=== PATIENT | male | born 1965 | race Caucasian/White ===

== ENCOUNTER 2018-03-26 05:15 | Emergency (ER) | payer BC ==
[2018-03-26 05:53] LABS: Absolute Lymphocytes (CBC) 1.5 K/uL (0.7-4.9); Absolute Monocytes 0.8 K/uL (0.1-1.3); Absolute Neutrophil 9.1 K/uL (1.8-8.0); Basophils % 0.6 % (0-1.3); Eosinophils % 0.6 % (0-4.4); Hematocrit 44.2 % (39.6-49.0); Lymphocytes % 13.3 % (15.3-44.8); MCH 33.2 pg (27.0-35.0); MCV 99.8 fL (80-100); MPV 8.4 fL (7.6-11.3); Monocytes % 6.7 % (3.3-12.3); RBC Red Blood Cell Count 4.43 M/uL (4.33-5.43)
[2018-03-26 06:00] LABS: Potassium 3.9 mEq/L (3.6-5.0)
[2018-03-26 06:04] LABS: Urine Blood NEGATIVE (NEG); Urine Glucose NEGATIVE (NEG); Urine Protein 1+ (NEG); Urine Specific Gravity 1.025 (1.005-1.030); Urine pH 6.5 (5.0-7.0)
[2018-03-26 06:04] LABS: Urine Amorphous Sediment 1+ /HPF (NONE SEEN); Urine Bacteria <20 /HPF (NONE SEEN); Urine Culture Reflex Order NOT NEEDED; Urine RBC <5 /HPF (NONE SEEN)
[2018-03-26 06:06] LABS: Albumin 4.2 g/dL (3.2-5.5); Bilirubin Direct 0.4 mg/dL (0-0.2); Protein, Total 7.5 g/dL (6.0-8.3)
--- NOTE | 2018-03-26 07:03 | RAD REPORT ---
EXAM DESCRIPTION: CT - Stone Protocol - 03/26/2018 6:41 am CLINICAL HISTORY: Abdominal pain, flank pain Images were submitted for preliminary [facility] report. Final dictation occurred prior to receiving p reliminary report. COMPARISON: None. TECHNIQUE: Axial 5 mm thick images were obtained without oral or IV contrast. The [id number] span s the entirety of the system partially obscuring uppermost abdomen and lung bases. All CT scans are performed using dose optimization technique as appropriate and may include automated exposure control or mA/KV adjustment according to patient size. FINDINGS: No hydronephrosis is present and no obstructing ureteral calculi. No suspicious renal mass es. Isodense masses and pyelonephritis are not excluded on a stone protocol CT scan. Urinary bladder is contracted accentuating wall thickness. No bladder calculi. Cystitis is not excluded based on imag ing. Prostate gland and seminal vesicles are normal range. Imaged portions of the liver, spleen and pancreas show no suspicious findings on non-contrast imaging . Cholecystectomy clips are present. No biliary tree dilatation. No significant adrenal finding. No suspicious bowel findings. Appendix is identified and normal. No mass or bulky lymphadenopathy. A 14 millimeter fat only umbilical hernia is present. Patient has a small fat filled left inguinal hernia. No free air, free fluid or inflammatory stranding. Disc and bony degenerative changes are present. No acute or pathologic bone process. IMPRESSION: No hydronephrosis, obstructing calculus or acute finding. Urinary bladder wall thickening is likely artifact of contraction rather than cystitis. Correlation c an be made with lab findings. No prostate or seminal vesicle acute finding. Isodense masses and pyelonephritis are not excluded on stone protocol technique. No pyelonephritis or acute GI process. Gallbladder is out with no acute pancreatic or gallbladder pro cess seen.
[2018-03-26] MEDS ORDERED: KETOROLAC 30 MG/ML INJ ONE (07:19)
[2018-03-26] MEDS ORDERED: NA CHLORIDE 0.9% 500 ML ONE (07:19)
--- NOTE | 2018-03-26 07:38 | ER ---
Nurse's Notes [facility] Name: Ruben Leroy Age: 52 yrs Sex: Male : 1965 Arrival Date: 03/26/2018 Time: 05:16 Bed 8 Private MD: Diagnosis: Unspecified abdominal pain Presentation: 03/26 05:21 Presenting complaint: EMS states: they were toned out for report of pt having right bb flank pain and abdominal pain pt states he has hx of kidney stones and has exacerbations every couple of years. Transition of care: patient was not received from another setting of care. Onset of symptoms was March 26, 2018. Risk Assessment: Do you want to hurt yourself or someone else? Patient reports no desire to harm self or others. Initial Sepsis Screen: Does the patient meet any 2 criteria? No. Patient's initial sepsis screen is negative. Does the patient have a suspected source of infection? No. Patient's initial sepsis screen is negative. Care prior to arrival: Medication(s) given: toradol 30mg IV initiated. 20 GA, in the left antecubital area. 05:21 Method Of Arrival: EMS: [facility] bb 05:21 Acuity: SHANI 3 bb Historical: - Allergies: 05:23 No Known Allergies; bb - Home Meds: 05:23 None [Active]; bb - PMHx: 05:23 Kidney stones; bb - PSHx: 05:23 Cholecystectomy; bb - Immunization history:: Adult Immunizations up to date. - Social history:: Smoking status: Patient uses tobacco products, cigars, Patient uses alcohol, occasionally. Patient/guardian denies using street drugs. Screenin:24 Abuse screen: Denies threats or abuse. Denies injuries from another. Nutritional mg2 screening: No deficits noted. Tuberculosis screening: No symptoms or risk factors identified. Fall Risk IV access (20 points). Assessment: 05:25 General: Appears uncomfortable, Behavior is cooperative. Pain: Complains of pain in mg2 flank Pain does not radiate. Pain currently is 10 out of 10 on a pain scale. Quality of pain is described as aching, Pain began suddenly, Is intermittent, Alleviated by medications, Noted to be grimacing, moaning. Neuro: Level of Consciousness is awake, alert, Oriented to person, place, time. Cardiovascular: Capillary refill < 3 seconds Patient's skin is warm and dry. Respiratory: Airway is patent Respiratory effort is even, unlabored, Respiratory pattern is regular, symmetrical. GI: Reports lower abdominal pain. : Reports flank pain. EENT: No signs and/or symptoms were reported regarding the EENT system. Derm: Skin is intact, Skin is pink, warm \T\ dry. normal. Musculoskeletal: No signs and/or symptoms reported regarding the musculoskeletal system. 06:08 Reassessment: Patient appears in no apparent distress at this time. Patient and/or aa1 family updated on plan of care and expected duration. Pain level reassessed. Patient is alert, oriented x 3, equal unlabored respirations, skin warm/dry/pink. Pt awaiting CT scan. Vital Signs: 05:23 BP 128 / 96; Pulse 57; Resp 20 S; Temp 99.7(O); Pulse Ox 99% on R/A; Weight 80.74 kg bb (R); Height 5 ft. 8 in. (172.72 cm) (R); Pain 10/10; 06:09 BP 114 / 75; Pulse 64; Resp 18; Pulse Ox 96% on R/A; aa1 07:49 BP 118 / 80; Pulse 72; Resp 17 S; Pulse Ox 100% ; Pain 4/10; sg 05:23 Body Mass Index 27.06 (80.74 kg, 172.72 cm) bb ED Course: 05:16 Patient arrived in ED. ds1 05:23 Triage completed. bb 05:23 Julio Cotton, RN is Primary Nurse. mg2 05:23 Arm band placed on Patient placed in an exam room, on a stretcher, on pulse oximetry. bb 05:24 Maintain EMS IV. Dressing intact. Good blood return noted. Site clean \T\ dry. Gauge \T\ mg 2 site: 20 \T\ L AC. 06:13 Alberto Moore PA is PHCP. cp 06:13 David Knott MD is Attending Physician. cp 06:[address] via wheelchair. kw1 06:38 CT completed. Patient tolerated procedure well. Patient moved back from CT. kw1 06:41 CT Stone Protocol In Process Unspecified. EDMS 07:48 Awaiting: IV fluid to infuse as ordered prior to dc to home, pt stated understanding. sg Administered Medications: 07:22 Drug: TORadol 30 mg Route: IVP; Site: left antecubital; sg 07:22 Drug: NS 0.9% 500 ml Route: IV; Rate: bolus; Site: left antecubital; sg Outcome: 07:38 Discharge ordered by . yasmeen 08:07 Patient left the ED. sg Signatures: Dispatcher [employer] EDMS Sly Higgins RN RN sg Maira Mercado RN RN aa1 Yaneth Persaud ds1 Felicita Childers RN RN Alberto Oliveros PA PA Jaimie Neville 1 Julio Cotton RN RN mg2 Corrections: (The following items were deleted from the chart) 05:28 05:25 GI: No signs and/or symptoms were reported involving the gastrointestinal system. mg2 mg2 05:28 05:25 GI: No signs and/or symptoms were reported involving the gastrointestinal system. mg2 Reports lower abdominal pain, mg2
--- NOTE | 2018-03-26 07:38 | EDPHYS ---
Physician Documentation [facility] Name: Ruben Leroy Age: 52 yrs Sex: Male : 1965 Arrival Date: 03/26/2018 Time: 05:16 Bed 8 Private MD: ED Physician David Knott HPI: 03/26 06:19 This 52 yrs old Male presents to ER via EMS with complaints of Flank Pain. cp 06:19 The patient complains of pain in the right flank. The pain radiates to the abdomen. cp 06:19 Onset: The symptoms/episode began/occurred last night. cp 06:19 Associated signs and symptoms: Pertinent positives: nausea, vomiting, Pertinent cp negatives: diarrhea, dysuria, fever, pain radiating to the lower extremities. Severity of pain: in the emergency department the pain has improved mildly. The patient has experienced similar episodes in the past, today's symptoms are similar, to when the patient was apparently diagnosed with kidney stones. Historical: - Allergies: 05:23 No Known Allergies; bb - Home Meds: 05:23 None [Active]; bb - PMHx: 05:23 Kidney stones; bb - PSHx: 05:23 Cholecystectomy; bb - Immunization history:: Adult Immunizations up to date. - Social history:: Smoking status: Patient uses tobacco products, cigars, Patient uses alcohol, occasionally. Patient/guardian denies using street drugs. ROS: 06:25 Constitutional: Negative for body aches, chills, fever, poor PO intake. cp 06:25 Eyes: Negative for injury, pain, redness, and discharge. cp 06:25 ENT: Negative for drainage from ear(s), ear pain, sore throat, difficulty swallowing, difficulty handling secretions. 06:25 Cardiovascular: Negative for chest pain, edema, palpitations. 06:25 Respiratory: Negative for cough, shortness of breath, wheezing. 06:25 Abdomen/GI: Positive for abdominal pain, nausea and vomiting, Negative for diarrhea, constipation, black/tarry stool, rectal bleeding, active vomiting. 06:25 Back: Positive for flank pain, on the right. 06:25 : Negative for urinary symptoms. 06:25 Skin: Negative for cellulitis, rash. 06:25 Neuro: Negative for dizziness, headache, weakness. 06:25 All other systems are negative. Exam: 06:32 Constitutional: The patient appears in no acute distress, alert, awake, cp non-diaphoretic, non-toxic, well developed, well nourished. 06:32 Head/Face: Normocephalic, atraumatic. cp 06:32 Eyes: Periorbital structures: appear normal, Pupils: equal, round, and reactive to light and accomodation, Conjunctiva: normal, no exudate, no injection, Sclera: no appreciated abnormality, Lids and lashes: appear normal, bilaterally. 06:32 ENT: External ear(s): are unremarkable, Nose: is normal, Mouth: Lips: moist, Oral mucosa: pink and intact, moist, Posterior pharynx: is normal, airway is patent, no erythema, no exudate. 06:32 Neck: External neck: is normal, ROM/movement: is normal, is supple, without pain, no range of motions limitations, no meningismus, no nuchal rigidity. 06:32 Chest/axilla: Inspection: normal, Palpation: is normal, no crepitus, no tenderness. 06:32 Cardiovascular: Rate: bradycardic, Rhythm: regular, Edema: is not appreciated, JVD: is not appreciated. 06:32 Respiratory: the patient does not display signs of respiratory distress, Respirations: normal, no use of accessory muscles, no retractions, no splinting, no tachypnea, labored breathing, is not present, Breath sounds: are clear throughout, no decreased breath sounds, no stridor, no wheezing. 06:32 Abdomen/GI: Inspection: abdomen appears normal, Bowel sounds: active, all quadrants, Palpation: soft, in all quadrants, mild abdominal tenderness, in the right upper quadrant and right lower quadrant, rebound tenderness, is not appreciated, voluntary guarding, is not appreciated, involuntary guarding, is not appreciated. 06:32 Back: ROM is normal, CVA tenderness, that is mild, is noted on the right. 06:32 Skin: cellulitis, is not appreciated, no rash present. 06:32 Neuro: Orientation: to person, place \T\ time. Mentation: lucid, able to follow commands, Cerebellar function: is grossly normal, Motor: moves all fours, strength is normal, Sensation: no obvious gross deficits. Vital Signs: 05:23 BP 128 / 96; Pulse 57; Resp 20 S; Temp 99.7(O); Pulse Ox 99% on R/A; Weight 80.74 kg bb (R); Height 5 ft. 8 in. (172.72 cm) (R); Pain 10/10; 06:09 BP 114 / 75; Pulse 64; Resp 18; Pulse Ox 96% on R/A; aa1 07:49 BP 118 / 80; Pulse 72; Resp 17 S; Pulse Ox 100% ; Pain 4/10; sg 05:23 Body Mass Index 27.06 (80.74 kg, 172.72 cm) bb MDM: 06:13 Patient medically screened. cp 06:30 Differential diagnosis: nephrolithiasis, pyelonephritis, UTI, diverticulitis, cp pancreatitis, ruptured AAA, dissecting AAA. 07:37 Data reviewed: vital signs, nurses notes, lab test result(s), radiologic studies, CT cp scan. 07:37 Counseling: I had a detailed discussion with the patient and/or guardian regarding: the cp historical points, exam findings, and any diagnostic results supporting the discharge/admit diagnosis, lab results, radiology results, to return to the emergency department if symptoms worsen or persist or if there are any questions or concerns that arise at home. Response to treatment: the patient's symptoms have markedly improved after treatment, and as a result, I will discharge patient. Special discussion: Based on the patient's Hx, exam, and Dx evaluation, there is no indication for emergent surgery or inpatient Tx. It is understood by the patient/guardian that if the Sx's persist or worsen they need to return immediately for re-evaluation. 03/26 05:24 Order name: Amylase, Serum; Complete Time: 06:18 tw4 03/26 05:24 Order name: Basic Metabolic Panel; Complete Time: 06:18 tw4 03/26 06:18 Interpretation: Normal except: GLUC 150; GFR 71. 03/26 05:24 Order name: CBC with Diff; Complete Time: 06:18 tw4 03/26 06:18 Interpretation: Normal except: WBC 11.5; LYNDSEY% 78.8; LYM% 13.3; NEUT A 9.1. 03/26 05:24 Order name: Creatinine for Radiology; Complete Time: 06:18 tw4 03/26 07:09 Interpretation: Within normal limits: Reviewed. 03/26 05:24 Order name: Hepatic Function; Complete Time: 06:18 tw4 03/26 07:08 Interpretation: Normal except: SGOT 111; SGPT 76; BILID 0.4. cp 03/26 05:24 Order name: Lipase; Complete Time: 06:18 tw4 03/26 05:24 Order name: Urine Microscopic Only; Complete Time: 06:18 tw4 03/26 07:36 Interpretation: Reviewed. cp 03/26 05:24 Order name: IV Saline Lock; Complete Time: 05:29 tw4 03/26 05:24 Order name: Labs collected and sent; Complete Time: 05:29 tw4 03/26 05:24 Order name: Urine Dipstick-Ancillary (obtain specimen); Complete Time: 05:53 tw4 03/26 05:25 Order name: CT Stone Protocol; Complete Time: 07:06 tw4 03/26 07:07 Interpretation: Report reviewed. 03/26 05:55 Order name: Urine Dipstick--Ancillary (enter results); Complete Time: 06:18 [facility] 03/26 07:08 Interpretation: Normal except: UPROT 1+. cp Administered Medications: 07:22 Drug: TORadol 30 mg Route: IVP; Site: left antecubital; sg 07:22 Drug: NS 0.9% 500 ml Route: IV; Rate: bolus; Site: left antecubital; sg Disposition: 03/26/18 07:38 Discharged to Home. Impression: Unspecified abdominal pain. - Condition is Stable. - Discharge Instructions: Abdominal Pain, Adult. - Prescriptions for Zofran 4 mg Oral Tablet - take 1 tablet by ORAL route every 12 hours As needed; 20 tablet. Naprosyn 500 mg Oral Tablet - take 1 tablet by ORAL route 2 times per day take with food; 20 tablet. - Medication Reconciliation Form, Thank You Letter, Antibiotic Education, Prescription Opioid Use form. - Follow up: Private Physician; When: 1 - 2 days; Reason: Recheck today's complaints, general surgery for umbilical and inguinal hernias. - Problem is new. - Symptoms have improved. Addendum: 03/27/2018 22:51 Co-signature as Attending Physician, David Knott MD I agree with the assessment and t w4 plan of care. Signatures: Dispatcher [employer] Sly Hummel RN RN Felicita Cullen RN RN bb Alberto Moore PA PA cp David Knott MD MD tw4 Corrections: (The following items were deleted from the chart) 03/26 08:07 07:38 03/26/2018 07:38 Discharged to Home. Impression: Unspecified abdominal pain. sg Condition is Stable. Forms are Medication Reconciliation Form, Thank You Letter, Antibiotic Education, Prescription Opioid Use. Follow up: Private Physician; When: 1 - 2 days; Reason: Recheck today's complaints, general surgery for umbilical and inguinal hernias. Problem is new. Symptoms have improved. cp
== END 2018-03-26 08:07 | disposition home or self-care (01) ==
LOC: ER 05:15
DX: R10.9 Unspecified abdominal pain (principal); Z72.0 Tobacco use
CPT/HCPCS: 36415; 74176; 76377; 80048; 80076; 81003; 81015; 82150; 83690; 85025; 96374; 99284

== ENCOUNTER 2018-03-29 07:04 | Inpatient (IN) | payer BC ==
[2018-03-29] MEDS ORDERED: NA CHLORIDE 0.9% 1,000 ML ONE ×2 (07:31→09:36)
[2018-03-29] MEDS ORDERED: FENTANYL CITR 100 MCG/2 ML ONE ×2 (07:31→08:23)
[2018-03-29 07:54] LABS: Absolute Lymphocytes (CBC) 1.7 K/uL (0.7-4.9); Absolute Monocytes 0.7 K/uL (0.1-1.3); Absolute Neutrophil 8.1 K/uL (1.8-8.0); Basophils % 0.5 % (0-1.3); Eosinophils % 0.8 % (0-4.4); Lymphocytes % 15.7 % (15.3-44.8); MCH 34.1 pg (27.0-35.0); MPV 8.4 fL (7.6-11.3); Monocytes % 6.8 % (3.3-12.3); RBC Red Blood Cell Count 4.66 M/uL (4.33-5.43)
[2018-03-29 07:57] LABS: Protime INR 0.92
--- NOTE | 2018-03-29 08:12 | RAD REPORT ---
EXAM DESCRIPTION: CT - Abdomen Pelvis W Contrast - 03/29/2018 7:50 am CLINICAL HISTORY: Abdominal pain, vomiting, history of kidney stones COMPARISON: CT study March 26 TECHNIQUE: Biphasic, helical CT imaging of the abdomen and pelvis was performed following 100 ml non -ionic IV contrast. No oral contrast given. All CT scans are performed using dose optimization technique as appropriate and may include automated exposure control or mA/KV adjustment according to patient size. FINDINGS: Minimal scarring and/ or atelectasis in the lung bases. No acute lung base finding. No per icardial effusion. No suspicious liver lesions identified. A small enhancing hyperdense focus in the right lobe segment 6 is likely a small hemangioma. No capsular nodularity. Spleen and pancreas show no suspicious findin gs. Cholecystectomy clips are present. Delete select biliary tree dilatation is present. In a post ch olecystectomy patient this could be normal reservoir effect. Duct stones can be occult. There is subt le hyperdensity in the distal common bile duct. No pancreatic or duodenal focal abnormality. Symmetric renal function is seen with no hydronephrosis or suspicious renal mass. No pyelonephritis o r acute renal parenchymal process. Urinary bladder is only partially filled. Bladder wall is prominen t. Cystitis is not excluded and can be correlated with laboratory findings. No acute prostate or semi nal vesicle abnormality. Patient has minimal sigmoid diverticulosis without diverticulitis. The appendix is normal. No dilated large or small bowel. No acute gastric finding. No free air, free fluid or inflammatory stranding. No mass or bulky lymphadenopathy. A very small fat only umbilical hernia seen. Small fat filled left inguinal hernia. No adrenal abnormality. No suspicious bony findings. IMPRESSION: Cholecystectomy clips are present. Intrahepatic and extrahepatic biliary tree dilatation are present. There is questionable distal duct stone in the head of the pancreas. Duct stones can be occult. Dilatation can be normal in a post cholecystectomy patient. Correlation is needed with any biliary ob structive clinical or laboratory findings. Castillo of the urinary bladder are prominent possibly artifact of contraction. Cystitis is not excluded and can be correlated with any corresponding UA abnormality or clinical history. No appendicitis, diverticulitis or other acute GI process.
[2018-03-29 08:32] LABS: Bicarbonate 25 mEq/L (21-31); Glucose Level 122 mg/dL (65-120); Lipase 31 U/L (22-51); Potassium 3.7 mEq/L (3.6-5.0); Sodium Level 138 mEq/L (135-145)
--- NOTE | 2018-03-29 08:56 | RAD REPORT ---
EXAM DESCRIPTION: RAD - Chest Single View - 03/29/2018 8:05 am CLINICAL HISTORY: Abdominal pain, nausea, vomiting COMPARISON: None. TECHNIQUE: AP portable chest image was obtained [id number] hours . FINDINGS: Low lung volumes accentuate lung markings. Mild interstitial edema or infiltrate could be masked. No diffuse pulmonary edema or focal consolidation. No mass lesion. Heart size and vasculature within normal limits for shallow inspiration portable imaging. No measurable pleural effusion and no pneumothorax. No acute bone finding. Old right clavicle fracture. No acute aortic findings suspected . IMPRESSION: Shallow inspiration film accentuates interstitial markings. This is probably baseline though early interstitial edema or infiltrate could be masked.
[2018-03-29 09:01] LABS: AST/SGOT 190 IU/L (10-42); Albumin 4.7 g/dL (3.2-5.5); Alkaline Phosphatase 328 IU/L (42-121); BUN Blood Urea Nitrogen 13 mg/dL (6-20); Bilirubin Direct 1.4 mg/dL (0-0.2); Bilirubin Total 2.5 mg/dL (0.3-1.2); CKMB Creatine Kinase MB 1.2 ng/ml (0.3-4.0); Creatine Phosphokinase 131 IU/L (22-269); Magnesium 2.3 mg/dL (1.8-2.5); Protein, Total 8.5 g/dL (6.0-8.3)
[2018-03-29 09:02] LABS: Alcohol Serum/Plasma < 10 mg/dl
[2018-03-29 09:04] LABS: ALT/SGPT 331 IU/L (10-60)
--- NOTE | 2018-03-29 09:08 | RAD REPORT ---
EXAM DESCRIPTION: US - Abdomen Exam Limited - 03/29/2018 8:38 am CLINICAL HISTORY: Abdominal pain COMPARISON: CT study March 29 FINDINGS: Gallbladder is absent. No mass or abnormal fluid collection in the gallbladder fossa. Extr ahepatic biliary tree is 9-10 mm in size. No duct stones are identifiable. The common bile duct in th e head of the pancreas is poorly visualized. The biliary tree this size is not outside of normal rang e in a post cholecystectomy patient. Biliary tree can enlarge as a reservoir effect after cholecystec efren. IMPRESSION: Status post cholecystectomy with biliary tree 9-10 mm in size. This degree of dilatation is not outside of normal range in a post cholecystectomy patient. However, a duct stone is not excluded. If patient has clinical or laboratory findings for biliary obstruction, MRCP or ERCP could be performed.
--- NOTE | 2018-03-29 09:13 | ER ---
Nurse's Notes [facility] Name: Ruben Leroy Age: 52 yrs Sex: Male : 1965 Arrival Date: 03/29/2018 Time: 07:06 Bed 18 Private MD: None, None Diagnosis: Upper abdominal pain, unspecified;Biliary tree dilatation with stone Presentation: 03/29 07:07 Presenting complaint: Patient states: upper abd pain and vomited once this morning. Pt aa5 states "I was seen in the ER a couple of days ago for the same thing and they said I had a hernia". Pt denies diarrhea. 07:07 Transition of care: patient was not received from another setting of care. Onset of aa5 symptoms was March 2018. Risk Assessment: Do you want to hurt yourself or someone else? Patient reports no desire to harm self or others. Initial Sepsis Screen: Does the patient meet any 2 criteria? No. Patient's initial sepsis screen is negative. Does the patient have a suspected source of infection? No. Patient's initial sepsis screen is negative. Care prior to arrival: None. 07:07 Method Of Arrival: Ambulatory aa5 07:07 Acuity: SHANI 3 aa5 Historical: - Allergies: 07:10 No Known Allergies; aa5 - PMHx: 07:10 Kidney stones; aa5 - PSHx: 07:10 Cholecystectomy; aa5 - Immunization history:: Adult Immunizations unknown. - Social history:: Smoking status: Patient uses tobacco products, cigars. - Ebola Screening: : No symptoms or risks identified at this time. Screenin:20 Abuse screen: Denies threats or abuse. Nutritional screening: No deficits noted. aa5 Tuberculosis screening: No symptoms or risk factors identified. Fall Risk None identified. Assessment: 07:10 General: Appears uncomfortable, Behavior is cooperative. Pain: Complains of pain in aa5 right upper quadrant and left upper quadrant Pain does not radiate. Pain currently is 10 out of 10 on a pain scale. Quality of pain is described as sharp, Pain began 2-3 days ago. Is continuous, Alleviated by nothing. Aggravated by eating, Noted to be guarding. Neuro: Level of Consciousness is awake, alert, obeys commands, Oriented to person, place, time, situation. Cardiovascular: Heart tones S1 S2 present Edema is absent. Rhythm is regular. Respiratory: Airway is patent Respiratory effort is even, unlabored, Respiratory pattern is regular, symmetrical, Breath sounds are clear bilaterally. GI: Abdomen is flat, non-distended, Bowel sounds present X 4 quads. Abd is soft X 4 quads Abdomen is tender to palpation in right upper quadrant and left upper quadrant Reports nausea, vomiting, since this morning Patient currently denies bloody stool, cramping, diarrhea. : Reports "my urine has been dark since yesterday so I think I am dehydrated". EENT: No signs and/or symptoms were reported regarding the EENT system. Derm: Skin is pink, warm \\T\\ dry. Musculoskeletal: Range of motion: intact in all extremities. 07:33 Reassessment: Pt taken to CT via stretcher . aa5 07:50 Reassessment: Patient and/or family updated on plan of care and expected duration. Pain aa5 level reassessed. Patient is alert, oriented x 3, equal unlabored respirations, skin warm/dry/pink. Pt back from CT. Pt states "I feel just a little bit better". Pt currently denies nausea. Rates pain a 9/10 on a pain scale. . 08:07 Reassessment: Pt requesting more pain medication at this time, pt notified I will aa5 notify STRUCTURAL IRON ERECTOR. Pt currently appears uncomfortable, guarding. Pt notified of wait time for complete lab results and radiology results, pt verbalized understanding. . 08:25 Reassessment: Patient and/or family updated on plan of care and expected duration. Pain aa5 level reassessed. Patient is alert, oriented x 3, equal unlabored respirations, skin warm/dry/pink. Pain: Pain currently is 9 out of 10 on a pain scale. 08:26 Reassessment: US at bedside . aa5 08:58 Reassessment: Patient is alert, oriented x 3, equal unlabored respirations, skin aa5 warm/dry/pink. Patient states symptoms have not improved. STRUCTURAL IRON ERECTOR notified of pt's pain . Pain: Pain currently is 10 out of 10 on a pain scale. 09:46 Reassessment: Patient appears in no apparent distress at this time. Patient states he ae1 felt the "stone pass" and now reports feeling better. Patient states feeling better. Patient states symptoms have improved. 11:58 Reassessment: Patient appears in no apparent distress at this time. Patient and/or ae1 family updated on plan of care and expected duration. Pain level reassessed. Patient states feeling better. Patient states symptoms have improved. Vital Signs: 07:12 BP 146 / 90; Pulse 60; Resp 20 S; Temp 98.3(O); Pulse Ox 97% on R/A; Weight 81.65 kg aa5 (R); Height 5 ft. 8 in. (172.72 cm) (R); Pain 10/10; 08:25 BP 140 / 83; Pulse 69; Resp 18 S; Pulse Ox 99% on R/A; Pain 9/10; aa5 09:47 BP 136 / 90; Pulse 73; Resp 17; Pulse Ox 95% on R/A; ae1 11:57 BP 110 / 64; Pulse 68; Resp 17; Pulse Ox 97% on R/A; ae1 07:12 Body Mass Index 27.37 (81.65 kg, 172.72 cm) aa5 ED Course: 07:06 Patient arrived in ED. mr 07:06 None, None is Private Physician. mr 07:07 Arm band placed on Patient placed in an exam room, on a stretcher. aa5 07:07 Patient has correct armband on for positive identification. Placed in gown. Bed in low aa5 position. Call light in reach. Side rails up X2. 07:08 [facility] Townsend [facility]C [facility]. snw 07:09 Alberto Marquez MD is Attending Physician. snw 07:15 Janessa Handley RN is Primary Nurse. aa5 07:17 Triage completed. aa5 07:25 Initial lab(s) drawn, by hi, sent to lab. Inserted saline lock: 22 gauge in right aa5 forearm, using aseptic technique. Blood collected. 07:48 No provider procedures requiring assistance completed. aa5 07:50 CT Abd/Pelvis - W/Contrast In Process Unspecified. EDMS 08:03 EKG done, by parts identification technician. reviewed by Negin AL. at1 08:05 XRAY Chest (1 view) In Process Unspecified. EDMS 08:32 US Abdomen Limited In Process Unspecified. EDMS 09:03 Notified Nurse Practitioner and/or Physician [employer] of a critical lab result(s), ALT iw 331. 09:06 Report given to CHRIS Mirza. aa5 09:11 Miguel Begum DO is Hospitalizing Provider. snw 12:13 Patient moved to MRI via wheelchair. ka 12:50 MRI completed. Patient tolerated well. Patient moved back from MRI. ka 14:19 Patient admitted, IV remains in place. ae1 Administered Medications: 07:32 Drug: fentaNYL (PF) 25 mcg Route: IVP; Site: right forearm; aa5 07:50 Follow up: Response: No adverse reaction aa5 07:50 Drug: NS 0.9% 1000 ml Route: IV; Rate: 1 bolus; Site: right forearm; aa5 13:49 Follow up: IV Status: Completed infusion ae1 13:50 Follow up: IV Status: Completed infusion ae1 08:25 Drug: fentaNYL (PF) 25 mcg Route: IVP; Site: right forearm; aa5 08:30 Follow up: Response: No adverse reaction aa5 08:59 Drug: fentaNYL (PF) 50 mcg Route: IVP; Site: right forearm; aa5 09:36 Drug: NS 0.9% 1000 ml Route: IV; Rate: 125 ml/hr; Site: right antecubital; ae1 13:50 Follow up: IV Status: Infusion continued upon admission ae1 Outcome: 09:12 Decision to Hospitalize by Provider. snw 14:18 Admitted to Med/surg accompanied by tech, via wheelchair, room 204, with chart, Report ae1 called to CHRIS Valero 14:18 Condition: stable 14:18 Discharge instructions given to patient, Instructed on the need for admit, Demonstrated understanding of instructions. 14:19 Patient left the ED. ae1 Signatures: Dispatcher [employer] EDMS Negin Townsend, CEMENT SPRAYER HELPER-C CEMENT SPRAYER HELPER-CsnLisa Dyer Irene, RN Janessa De Leon RN RN aa5 Lisa wray, chemists EKG Tat1 Hayley Banda Andrea, RN RN ae1 Corrections: (The following items were deleted from the chart) 09:06 09:06 Report given to CHRIS Gaitan aa5 aa5
--- NOTE | 2018-03-29 09:13 | EDPHYS ---
Physician Documentation [facility] Name: Ruben Leroy Age: 52 yrs Sex: Male : 1965 Arrival Date: 03/29/2018 Time: 07:06 Bed 18 Private MD: None, None ED Physician Alberto Marquez HPI: 03/29 07:46 This 52 yrs old Male presents to ER via Ambulatory with complaints of snw Abdominal Pain. 07:46 The patient presents with abdominal pain that is diffuse. Onset: The symptoms/episode snw began/occurred suddenly, and became worse. The symptoms do not radiate. Associated signs and symptoms: Pertinent positives: anorexia. The symptoms are described as constant, sharp, shooting. Severity of pain: At its worst the pain was severe. The patient has experienced a previous episode. other ED. Historical: - Allergies: 07:10 No Known Allergies; aa5 - PMHx: 07:10 Kidney stones; aa5 - PSHx: 07:10 Cholecystectomy; aa5 - Immunization history:: Adult Immunizations unknown. - Social history:: Smoking status: Patient uses tobacco products, cigars. - Ebola Screening: : No symptoms or risks identified at this time. ROS: 07:45 Constitutional: Negative for fever, chills, and weight loss, Eyes: Negative for injury, snw pain, redness, and discharge, ENT: Negative for injury, pain, and discharge, Neck: Negative for injury, pain, and swelling, Cardiovascular: Negative for chest pain, palpitations, and edema, Respiratory: Negative for shortness of breath, cough, wheezing, and pleuritic chest pain, Abdomen/GI: Positive for abdominal pain, nausea, vomiting, Negative for diarrhea and constipation, Back: Negative for injury and pain, : Negative for injury, bleeding, discharge, and swelling, MS/Extremity: Negative for injury and deformity, Skin: Negative for injury, rash, and discoloration, Neuro: Negative for headache, weakness, numbness, tingling, and seizure. Exam: 07:43 Constitutional: This is a well developed, well nourished patient who is awake, alert, snw and in no acute distress. Head/Face: Normocephalic, atraumatic. Eyes: Pupils equal round and reactive to light, extra-ocular motions intact. Lids and lashes normal. Conjunctiva and sclera are non-icteric and not injected. Cornea within normal limits. Periorbital areas with no swelling, redness, or edema. ENT: Nares patent. No nasal discharge, no septal abnormalities noted. Tympanic membranes are normal and external auditory canals are clear. Oropharynx with no redness, swelling, or masses, exudates, or evidence of obstruction, uvula midline. Mucous membranes moist. Neck: Trachea midline, no thyromegaly or masses palpated, and no cervical lymphadenopathy. Supple, full range of motion without nuchal rigidity, or vertebral point tenderness. No Meningismus. Chest/axilla: Normal chest wall appearance and motion. Nontender with no deformity. No lesions are appreciated. Cardiovascular: Regular rate and rhythm with a normal S1 and S2. No gallops, murmurs, or rubs. Normal PMI, no JVD. No pulse deficits. Respiratory: Lungs have equal breath sounds bilaterally, clear to auscultation and percussion. No rales, rhonchi or wheezes noted. No increased work of breathing, no retractions or nasal flaring. Back: No spinal tenderness. No costovertebral tenderness. Full range of motion. Skin: Warm, dry with normal turgor. Normal color with no rashes, no lesions, and no evidence of cellulitis. MS/ Extremity: Pulses equal, no cyanosis. Neurovascular intact. Full, normal range of motion. Neuro: Awake and alert, GCS 15, oriented to person, place, time, and situation. Cranial nerves II-XII grossly intact. Motor strength 5/5 in all extremities. Sensory grossly intact. Cerebellar exam normal. Normal gait. 07:43 Abdomen/GI: Bowel sounds: normal, in all quadrants, Palpation: moderate abdominal tenderness, severe abdominal tenderness, in the right upper quadrant, left upper quadrant, right lower quadrant and left lower quadrant, involuntary guarding, is elicited in all quadrants. Vital Signs: 07:12 BP 146 / 90; Pulse 60; Resp 20 S; Temp 98.3(O); Pulse Ox 97% on R/A; Weight 81.65 kg aa5 (R); Height 5 ft. 8 in. (172.72 cm) (R); Pain 10/10; 08:25 BP 140 / 83; Pulse 69; Resp 18 S; Pulse Ox 99% on R/A; Pain 9/10; aa5 09:47 BP 136 / 90; Pulse 73; Resp 17; Pulse Ox 95% on R/A; ae1 11:57 BP 110 / 64; Pulse 68; Resp 17; Pulse Ox 97% on R/A; ae1 07:12 Body Mass Index 27.37 (81.65 kg, 172.72 cm) aa5 MDM: 07:09 Patient medically screened. snw 09:09 Data reviewed: vital signs, nurses notes. Data interpreted: Pulse oximetry: on room air snw is 99 %. Interpretation: normal. Counseling: I had a detailed discussion with the patient and/or guardian regarding: the historical points, exam findings, and any diagnostic results supporting the discharge/admit diagnosis, the presence of at least one elevated blood pressure reading (>120/80) during this emergency department visit, lab results, radiology results, the need for further work-up and treatment in the hospital. Physician consultation: Misbah Walker MD was called at 08:55, was contacted at 08:55, regarding consult, patient's condition, would like further tests performed, MRCP. Physician consultation: Miguel Begum DO was contacted at 09:09, regarding admission, to the medical/surgical unit. 03/29 07:21 Order name: Basic Metabolic Panel; Complete Time: 09:07 snw 03/29 07:21 Order name: BNP; Complete Time: 08:40 snw 03/29 07:21 Order name: CBC with Diff; Complete Time: 07:58 snw 03/29 07:21 Order name: Ckmb; Complete Time: 09:07 snw 03/29 07:21 Order name: CPK; Complete Time: 09:07 snw 03/29 07:21 Order name: LFT's; Complete Time: 09:07 snw 03/29 07:21 Order name: Magnesium; Complete Time: 09:07 snw 03/29 07:21 Order name: PT-INR; Complete Time: 08:15 snw 03/29 07:21 Order name: Ptt, Activated; Complete Time: 08:15 snw 03/29 07:21 Order name: Troponin (emerg Dept Use Only); Complete Time: 08:35 snw 03/29 07:21 Order name: Blood Culture* snw 03/29 07:21 Order name: ETOH Level; Complete Time: 09:07 snw 03/29 07:21 Order name: Lipase; Complete Time: 09:07 snw 03/29 09:56 Order name: Urine Dipstick--Ancillary (enter results); Complete Time: 10:17 bd 03/29 07:21 Order name: XRAY Chest (1 view); Complete Time: 08:57 snw 03/29 07:21 Order name: EKG; Complete Time: 07:22 snw 03/29 07:21 Order name: Cardiac monitoring; Complete Time: 07:43 snw 03/29 07:21 Order name: EKG - Nurse/Tech; Complete Time: 08:06 snw 03/29 07:21 Order name: IV Saline Lock; Complete Time: 07:43 snw 03/29 07:21 Order name: Labs collected and sent; Complete Time: 07:43 snw 03/29 07:21 Order name: O2 Per Protocol; Complete Time: 07:43 snw 03/29 07:21 Order name: O2 Sat Monitoring; Complete Time: 07:43 snw 03/29 07:21 Order name: CT Abd/Pelvis - W/Contrast; Complete Time: 08:15 snw 03/29 08:18 Order name: US Abdomen Limited; Complete Time: 09:08 snw 03/29 13:08 Order name: MRI; Complete Time: 13:10 EDMS 03/29 07:21 Order name: Urine Dipstick-Ancillary (obtain specimen); Complete Time: 09:46 snw Administered Medications: 07:32 Drug: fentaNYL (PF) 25 mcg Route: IVP; Site: right forearm; aa5 07:50 Follow up: Response: No adverse reaction aa5 07:50 Drug: NS 0.9% 1000 ml Route: IV; Rate: 1 bolus; Site: right forearm; aa5 13:49 Follow up: IV Status: Completed infusion ae1 13:50 Follow up: IV Status: Completed infusion ae1 08:25 Drug: fentaNYL (PF) 25 mcg Route: IVP; Site: right forearm; aa5 08:30 Follow up: Response: No adverse reaction aa5 08:59 Drug: fentaNYL (PF) 50 mcg Route: IVP; Site: right forearm; aa5 09:36 Drug: NS 0.9% 1000 ml Route: IV; Rate: 125 ml/hr; Site: right antecubital; ae1 13:50 Follow up: IV Status: Infusion continued upon admission ae1 Disposition: 15:10 Co-signature as Attending Physician, Alberto Marquez MD I agree with the assessment and roro plan of care. Disposition: 03/29/18 09:12 Hospitalization ordered by Miguel Begum for Inpatient Admission. Preliminary diagnosis are Upper abdominal pain, unspecified, Biliary tree dilatation with stone. - Bed requested for Telemetry/MedSurg (Inpatient). - Status is Inpatient Admission. ae1 - Condition is Fair. - Problem is new. - Symptoms are unchanged. UTI on Admission? No Signatures: Dispatcher [employer] EDMS Alesha Padron Corey, MD MD cha Therrien, Shelly, RADIUS GRINDER-C RADIUS GRINDER-Csnw Janessa Handley, RN RN aa5 Hermes Wagner RN RN ae1 Corrections: (The following items were deleted from the chart) 13:25 09:12 Hospitalization Ordered by Miguel Begum DO for Inpatient Admission. Preliminary bd diagnosis is Upper abdominal pain, unspecified; Biliary tree dilatation with stone. Bed requested for Telemetry/MedSurg (Inpatient). Status is Inpatient Admission. Condition is Fair. Problem is new. Symptoms are unchanged. UTI on Admission? No. snw 14:19 13:25 03/29/2018 09:12 Hospitalization Ordered by Miguel Begum DO for Inpatient ae1 Admission. Preliminary diagnosis is Upper abdominal pain, unspecified; Biliary tree dilatation with stone. Bed requested for Telemetry/MedSurg (Inpatient). Status is Inpatient Admission. Condition is Fair. Problem is new. Symptoms are unchanged. UTI on Admission? No. bd
--- NOTE | 2018-03-29 10:04 | EKG ---
Test Date: 2018-03-29 Test Time: 07:55:44 Regional Business Manager: CRISTOBAL MEASUREMENT RESULTS: Intervals: Rate: 61 RI: 234 QRSD: 110 QT: 424 QTc: 426 [place]: P: 64 RI: 234 QRS: 22 T: 44 INTERPRETIVE STATEMENTS: Sinus rhythm with 1st degree AV block Otherwise normal ECG No previous ECG available for comparison Electronically Signed On 03-29-18 10:03:55 CDT by Nicholas Collado
[2018-03-29 10:10] LABS: Urine Blood NEGATIVE (NEG); Urine Glucose NEGATIVE (NEG); Urine Protein NEGATIVE (NEG); Urine Specific Gravity 1.015 (1.005-1.030); Urine pH 5.5 (5.0-7.0)
[2018-03-29] MEDS ORDERED: SODIUM CHLORIDE 0.9% 10ML INJ IV PRN (10:59)
[2018-03-29] MEDS ORDERED: FENTANYL CITR 100 MCG/2 ML IV PRN (10:59)
[2018-03-29] MEDS ORDERED: ACETAMINOPHEN 500 MG TAB PO PRN (10:59)
[2018-03-29] MEDS ORDERED: ONDANSETRON 4 MG/2 ML VIAL IV PRN (10:59)
[2018-03-29] MEDS: NA CHLORIDE 0.9% 1,000 ML IV SCH ×2 (11:00→19:12)
--- NOTE | 2018-03-29 11:31 | P.HP ---
Certification for Inpatient Patient admitted to: Observation With expected LOS: <2 Midnights Patient will require the following post-hospital care: None Practitioner: I am a practitioner with admitting privileges, knowledge of patient current condition, hospital course, and medical plan of care. Services: Services provided to patient in accordance with Admission requirements found in Title 42 Section 412.3 of the Code of Federal Regulations Patient History Date of Service: 03/29/18 Primary Care Provider: None Reason for admission: Abdominal pain History of Present Illness: 52-year-old male presented with right upper quadrant abdominal pain. Patient reports right upper quadrant abdominal pain over the last 2 days. He did come to the ER at that time and discharged with diagnosis of umbilical hernia. Patient had more increased pain to the right upper quadrant. He rated the pain about a 10/10. It was associated with nausea and vomiting. Pain would radiate to the back. Patient with history of cholecystectomy. In the ER patient evaluated. Initial white count within normal range. Hemoglobin 15. Sodium 138, potassium 3.7. Total bilirubin 2.5, direct bilirubin 1.4. AST 190. ALT 331. Alk-phos 328. Troponin within normal range. Lipase normal. CT scan showed dilation of the intrahepatic and extrahepatic biliary tree. The was some question of a distal ductal stone at the head of the pancreas. Abdominal ultrasound showed biliary tree slightly dilated at 9- 10 mm in size. Due to nature of his symptoms the patient was admitted for further evaluation. When I went to evaluate the patient he reported that he felt a release in his right upper quadrant area. He is without any pain at this time. He feels that the stone has passed. No nausea vomiting noted at this time. Patient has a history of kidney stones and colon polyps. Allergies No Known Allergies Allergy (Unverified 03/26/18 08:10) Home medications list reviewed: Yes - Past Medical/Surgical History Diabetic: No -: Nephrolithiasis -: Colon polyps -: Tobacco abuse -: Cholecystectomy -: Vein stripping Psychosocial/ Personal History: The patient is single. He has no children. 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 - Family History Father -: Cancer (Pancreatic cancer) - Social History Smoking Status: Current every day smoker Counseled patient to stop smoking for: less than 10 minutes Smoking therapy provided: Yes Patient receptive to therapy: Yes Alcohol use: Yes CD- Drugs: No Caffeine use: No Place of Residence: Home Review of Systems General: As per HPI Eyes: Unremarkable ENT: Unremarkable Respiratory: Unremarkable Cardiovascular: Unremarkable Gastrointestinal: Nausea, Vomiting, Abdominal Pain, As per HPI Genitourinary: Unremarkable Musculoskeletal: Back Pain, As per HPI Integumentary: Unremarkable Neurological: Unremarkable Lymphatics: Unremarkable Physical Examination - Physical Exam General: Alert, In no apparent distress, Oriented x3, Cooperative HEENT: Atraumatic, Normocephalic, PERRLA, Mucous membr. moist/pink Neck: Supple, No Thyromegaly Respiratory: Clear to auscultation bilaterally, Normal air movement Cardiovascular: Normal pulses, Regular rate/rhythm Gastrointestinal: Normal bowel sounds, Soft and benign, Non-distended, No tenderness, No masses, No rebound, No guarding Musculoskeletal: No erythema, No tenderness, No warmth Integumentary: No tenderness/swelling, No erythema, No warmth, No cyanosis Neurological: Normal speech, Normal strength at 5/5 x4 extr, Normal tone, Normal affect Lymphatics: No axilla or inguinal lymphadenopathy - Studies Laboratory Data (last 24 hrs) 03/29/18 07:25: PT 10.9, INR 0.92, APTT 28.7 03/29/18 07:25: WBC 10.6, Hgb 15.9, Hct 47.0, Plt Count 291 03/29/18 07:25: B-Natriuretic Peptide 13 03/29/18 07:25: Sodium 138, Potassium 3.7, BUN 13, Creatinine 1.07, Glucose 122 H, Magnesium 2.3, Total Bilirubin 2.5 H, AST 190 H, ALT 331 H* D, Alkaline Phosphatase 328 H, Lipase 31 Assessment and Plan - Problems (Diagnosis) (1) Abdominal pain Current Visit: Yes Status: Acute Plan: Patient with right upper abdominal pain. CT scan showed dilation of the intrahepatic and extrahepatic biliary duct. There was some question of a stone to the distal ductal area of the head to the pancreas. Patient has no more pain at this time. Stone may have passed. MRCP ordered. GI consulted to further evaluate. Patient with history of cholecystectomy. Will monitor closely. Qualifiers: Abdominal location: right upper quadrant Qualified Code(s): R10.11 - Right upper quadrant pain (2) Common bile duct dilatation Current Visit: Yes Status: Suspected Plan: Abdominal ultrasound shows mild dilation. Will continue as above. MRCP ordered. Await recommendation by GI. Will monitor enzymes. (3) Elevated liver function tests Current Visit: Yes Status: Acute Plan: Likely related to above. Will continue monitor enzymes. Continue as above. (4) Hyperbilirubinemia Current Visit: Yes Status: Acute Plan: Continue as above. (5) History of cholecystectomy Current Visit: Yes Status: Chronic Plan: Continue as above. Discharge Plan: Home Plan to discharge in: 24 Hours - Advance Directives Does patient have a Living Will: No Does patient have a Durable POA for Healthcare: No - Code Status/Comfort Care Code Status Assessed: Yes Time Spent Managing Pts Care (In Minutes): 55
--- NOTE | 2018-03-29 13:08 | RAD REPORT ---
EXAM DESCRIPTION: MRI - Cholangiogram - 03/29/2018 12:50 pm CLINICAL HISTORY: Right upper quadrant pain, nausea, vomiting COMPARISON: Ultrasound March 29, CT study March 29 FINDINGS: Gallbladder is absent. No biliary tree intrinsic mass or stricture. The exam has motion de gradation limitation. However, there does appear to be at least 1 filling defect, if not more, in the pancreatic head region of the common bile duct. Largest size is 4 mm. IMPRESSION: Motion degraded study shows evidence for multi stone choledocholithiasis.
[2018-03-30 03:59] LABS: Urine Appearance CLEAR; Urine Blood NEGATIVE (NEG); Urine Color DK YELLOW; Urine Glucose NEGATIVE (NEG); Urine Protein NEGATIVE (NEG); Urine pH 5.5 (5.0-7.0)
[2018-03-30 04:09] LABS: Urine Microscopic Reflex NO UMIC
[2018-03-30 04:15] LABS: Urine Bilirubin 1+ (NEG)
[2018-03-30] MEDS: NA CHLORIDE 0.9% 1,000 ML IV SCH ×2 (05:17→18:36)
[2018-03-30 06:41] LABS: Absolute Lymphocytes (CBC) 1.6 K/uL (0.7-4.9); Absolute Monocytes 0.5 K/uL (0.1-1.3); Absolute Neutrophil 3.4 K/uL (1.8-8.0); Basophils % 0.7 % (0-1.3); Eosinophils % 1.6 % (0-4.4); Hematocrit 44.6 % (39.6-49.0); Lymphocytes % 28.4 % (15.3-44.8); MCH 34.3 pg (27.0-35.0); MCV 101.5 fL (80-100); MPV 8.4 fL (7.6-11.3); RBC Red Blood Cell Count 4.39 M/uL (4.33-5.43)
[2018-03-30 06:43] LABS: Albumin 3.5 g/dL (3.2-5.5); Magnesium 2.1 mg/dL (1.8-2.5); Potassium 4.1 mEq/L (3.6-5.0); Protein, Total 6.1 g/dL (6.0-8.3)
--- NOTE | 2018-03-30 08:49 | P.PN ---
Subjective Date of Service: 03/30/18 Primary Care Provider: None Chief Complaint: Abdominal pain Subjective: Improving Physical Examination - Vital Signs Temperature: 98.7 F Blood Pressure: 123/83 Pulse: 61 Respirations: 16 Pulse Ox (%): 96 - Physical Exam General: Alert, In no apparent distress, Oriented x3, Cooperative HEENT: Atraumatic Neck: Supple Respiratory: Clear to auscultation bilaterally, Normal air movement Cardiovascular: Normal pulses, Regular rate/rhythm Gastrointestinal: Normal bowel sounds, Soft and benign, Non-distended, No tenderness, No masses, No rebound, No guarding Musculoskeletal: No erythema, No tenderness, No warmth Integumentary: No tenderness/swelling, No erythema, No warmth, No cyanosis Neurological: Normal speech, Normal strength at 5/5 x4 extr, Normal tone, Normal affect Lymphatics: No axilla or inguinal lymphadenopathy - Studies Laboratory Data (last 24 hrs) 03/29/18 07:25: BUN 13, Creatinine 1.07, Magnesium 2.3, Total Bilirubin 2.5 H, AST 190 H, ALT 331 H* D, Alkaline Phosphatase 328 H Medications List Reviewed: Yes Assessment & Plan - Problems (Diagnosis) (1) Abdominal pain Onset Date: 03/30/18 Current Visit: Yes Status: Acute Plan: MRCP showed multiple stone choledocholithiasis. Case discussed with GI. Patient will have ERCP today. Patient remains NPO. Qualifiers: Abdominal location: right upper quadrant Qualified Code(s): R10.11 - Right upper quadrant pain (2) Common bile duct dilatation Onset Date: 03/30/18 Current Visit: Yes Status: Suspected Plan: ERCP planned for multi stone choledocholithiasis. (3) Elevated liver function tests Onset Date: 03/30/18 Current Visit: Yes Status: Acute Plan: Likely related to above. Will continue monitor enzymes. Continue as above. (4) Hyperbilirubinemia Onset Date: 03/30/18 Current Visit: Yes Status: Acute Plan: Continue as above. (5) History of cholecystectomy Current Visit: Yes Status: Chronic Plan: Continue as above. (6) Choledocholithiasis Current Visit: Yes Status: Acute Plan: Multi stone choledocholithiasis noted. ERCP planned today. Case discussed with GI. Discharge Plan: Home Plan to discharge in: 24 Hours Time Spent Managing Pts Care (In Minutes): 55
[2018-03-30] MEDS: PANTOPRAZOLE 40 MG INJ IVP SCH (09:06)
[2018-03-30] MEDS ORDERED: GENTAMICIN SULF 80 MG/2ML INJ ONE (09:48)
[2018-03-30] MEDS ORDERED: Ringers Lactate 1,000 ML IV ONE (10:34)
[2018-03-30] MEDS ORDERED: PROPOFOL 200 MG/20 ML VIAL IV ONE (11:13)
[2018-03-30] MEDS ORDERED: MIDAZOLAM HCL 2 MG/2 ML INJ ONE (11:33)
[2018-03-30] MEDS ORDERED: FENTANYL CITR 100 MCG/2 ML ONE (11:33)
--- NOTE | 2018-03-30 12:25 | ENDO RPT ---
[address], [address] ERCP PROCEDURE REPORT EXAM DATE: 03/30/2018 PATIENT NAME: Ruben Leroy MR #: [id number] BIRTHDATE: 1965 ATTENDING: Misbah Walker Dr STATUS: inpatient - [facility] ELECTROLOG OPERATOR: Tamar Velásquez and Janet Cummins RN INDICATIONS: The patient is a 52 yr old Male here for an ERCP due to stone, abdominal pain, abnormal imaging, abnormal Liver Function Tests, and jaundice PROCEDURE PERFORMED: ERCP with sphincterotomy, ERCP with balloon passage, and ERCP with removal of stones MEDICATIONS: Per Anesthesia. CONSENT: The patient understands the risks and benefits of the procedure and understands that these risks include, but are not limited to: sedation, allergic reaction, infection, perforation and/or bleeding. Alternative means of evaluation and treatment include, among others: physical exam, x-rays, and/or surgical intervention. The patient elects to proceed with this endoscopic procedure. DESCRIPTION OF PROCEDURE: During intra-op preparation period all mechanical medical equipment was checked for proper function. Hand hygiene and appropriate measures for infection prevention was taken. Procedure, possible complications, and alternatives including but not limited to the possibility of bleeding, perforation, tear, infection, sepsis, need for surgery, need for blood transfusion, and anesthesia related complications were explained to the patient. In addition, 5-30% incidence of acute pancreatitis as a result of ERCP were explained. After the risks, benefits and alternatives of the procedure were thoroughly explained, Informed was verified, confirmed and timeout was successfully executed by the treatment team. With the patient in left semi-prone position, medications were administered intravenously.The [id number] ([id number]) was passed from the mouth into the esophagus and further advanced from the esophagus into the stomach. From stomach scope was directed to the second portion of the duodenum. Major papilla was aligned with the duodenoscope. The scope position was confirmed fluoroscopically. Rest of the findings/therapeutics are given below. The scope was then completely withdrawn from the patient and the procedure completed. The pulse, BP, and O2 saturation were monitored and documented by the physician and the nursing staff throughout the entire procedure. The patient was cared for as planned according to standard protocol. The patient was then discharged to recovery in stable condition and with appropriate post procedure care. Mild inflammation was found in the descending duodenum. Multiple minute black stones / sludge were found in the common bile duct. The common bile duct, intrahepatics, and pancreatic duct were successfully cannulated and filled with contrast. Sphincterotomy was performed with a regular 20 mm papillotome. A stone/sludge retrieval via balloon that was passed. ADVERSE EVENT: none IMPRESSIONS: 1. Inflammation in the descending duodenum, mild duodenitis 2. Multiple minute black stones / sludge in the common bile duct, s/p removal with 9 mm balloon catheter sweeps RECOMMENDATIONS: 1. antibiotics 2. monitor liver enzymes REPEAT EXAM: Misbah Walker Dr eSigned: Misbah Walker Dr 03/30/2018 12:24 PM cc: Miguel Begum CPT CODES: ICD9 CODES: PATIENT NAME: Ruben Leroy MR#: [id number]
[2018-03-30] MEDS ORDERED: CEFAZOLIN/SWI 1gm 2 GM/20 ML SYR ONE (12:29)
--- NOTE | 2018-03-30 12:51 | RAD REPORT ---
EXAM DESCRIPTION: Fluoroscopy for ERCP CLINICAL HISTORY: Abdominal pain FINDINGS: Fluoroscopic images submitted from ERCP procedure. Details and diagnostic findings of the procedure are not available.
[2018-03-31] MEDS: NA CHLORIDE 0.9% 1,000 ML IV SCH ×2 (00:40→09:07)
[2018-03-31 06:35] LABS: Absolute Lymphocytes (CBC) 1.6 K/uL (0.7-4.9); Absolute Monocytes 0.5 K/uL (0.1-1.3); Absolute Neutrophil 3.5 K/uL (1.8-8.0); Basophils % 0.6 % (0-1.3); Eosinophils % 1.5 % (0-4.4); Hematocrit 43.1 % (39.6-49.0); MCH 34.6 pg (27.0-35.0); MCV 101.3 fL (80-100); MPV 8.1 fL (7.6-11.3); Monocytes % 9.2 % (3.3-12.3); RBC Red Blood Cell Count 4.25 M/uL (4.33-5.43)
[2018-03-31 06:45] LABS: Albumin 3.6 g/dL (3.2-5.5); Bilirubin Total 1.8 mg/dL (0.3-1.2); Potassium 4.7 mEq/L (3.6-5.0); Protein, Total 6.5 g/dL (6.0-8.3)
[2018-03-31] MEDS: PANTOPRAZOLE 40 MG INJ IVP SCH (09:07)
--- NOTE | 2018-03-31 14:17 | DS ---
Date of Discharge: 03/31/2018 Consultants: Dr. Walker with Neurology. Procedures: On 03/30/2018, ERCP with sphincterotomy, balloon passage, and removal of stones. Admitting Diagnoses: 1.Abdominal pain. 2.Common bile duct dilatation. 3.Elevated liver function tests. 4.Hyperbilirubinemia. 5.History of cholecystectomy. Discharge Diagnoses: 1.Abdominal pain secondary to choledocholithiasis status post ERCP. 2.Choledocholithiasis status post ERCP and stone removal. 3.CBD dilatation secondary to above. 4.Elevated liver function enzymes secondary to above, improving. 5.Hyperbilirubinemia secondary to choledocholithiasis, improving. 6.History of cholecystectomy. Hospital Course: The patient is a 52-year-old male, no significant past medical history, not on any medications at home, comes in with abdominal pain. The patient was recently diagnosed with umbilical hernia in the ER and has had a cholecystectomy. The patient was found to have abnormal liver enzyme s including elevated bilirubin of 2.5. CT scan was done, which showed dilatation of the intrahepatic and extrahepatic biliary tree and possible distal ductal stones of the head of the pancreas. Abdomi nal ultrasound was done, showed biliary tree dilation at 9-10 mm and therefore, the patient had MRCP, which showed multiple choledocholithiasis. Dr. Walker with GI was consulted and ERCP was performed with stone extraction. The patient did well after the procedure. His pain resolved. His liver enzy mes trended down. His total bilirubin is also trending down. His amylase and lipase are normal. No further abdominal pain, able to tolerate a diet. The patient was then cleared for discharge. His b lood cultures did not have any growth. The patient was discharged home in a stable condition. Activity: As tolerated. Medications: As per medication reconciliation list. Followup: Follow up with primary care physician in 2 to 3 days. Follow up with Dr. Walker, GI in 2 weeks. Return to ER for worsening condition. Diet: [place] diet. Total time spent discharging the patient was 41 minute. Physical Examination: General: Awake, alert, oriented, no acute distress. CV: S1, S2. No murmurs. Respiratory: Moving air well bilaterally. Abdomen: Soft, nontender, and nondistended. Positive bowel sounds. Extremities: No clubbing, cyanosis, edema. SA/MODL Voice ID: [id number] Report ID: [id number]
--- NOTE | 2018-06-13 21:12 | CON ---
Date of Consultation: 03/30/2018 Reason For Consultation: Choledocholithiasis. History Of Present Illness: The patient is a 52-year-old white male with history of laparoscopic cho le in 2011 in [place], [place]. The patient presented to the hospital with right upper quadrant pa in over the past 2 days, extending to the midepigastric region with nausea and vomiting. He denies a ny fevers, chills, night sweats, or change in color of stool or bowel movements. He does have jaundi ce with elevated liver chemistries, positive jaundice. The patient does have jaundice. Past Medical History: Significant for kidney stones, colon polyps, cholecystectomy as stated, [place], [place] in 2011, vein stripping. Social History: He is . No children. He drinks. Smokes many cigars occasionally with posi tive alcohol. Father of pancreatic cancer. Mother is alive and well it appears. Review of Systems: The patient has right upper quadrant midepigastric pain socially, nausea, vomiting, and jaundice. No fevers, chills, night sweats, heat or cold times, melena, hematochezia, melena, coffee-ground emesis , hematuria, dysuria, polydipsia, chest pain, short of breath, seizure, syncope, muscle aches, joint aches, backaches, depression, and anxiety. Physical Examination: Vital signs: The patient is 5 foot 8, 180 pounds, and BMI of 27.3 kg/m2. Temperature 98.7 degrees F ahrenheit, pulse 61, respirations 16, blood pressure 123/83, and O2 saturation 96%. HEENT: Normocephalic and atraumatic. Anicteric. Pupils are equal, round, and reactive to light. E xtraocular movements are intact. Oropharynx is clear. Neck: Supple. No masses. Respiratory: Clear to auscultation bilaterally. Cardiac: Regular rate and rhythm. Gastrointestinal: Positive bowel sounds. Hypoactive. Soft and nondistended. Pain in the midepigas tric right upper quadrant. No peritoneal or Faria sign. Extremities: No clubbing, cyanosis, or edema. 2+ pulses. Neurologic: Alert and oriented x3. Grossly nonfocal. 5/5 motor strength. Sensation intact to ligh t touch. The patient is on pain medications currently. Laboratory Data: The patient has a white count of 5.7, hemoglobin of 15.1, hematocrit of 44.6, MCV o f 102, platelet count of 238, polys of 60%, lymphocytes 20%, monocytes of 5%, eosinophils of 2%, and basophils of 1%. PT of 10.9, INR of 1.0, PTT of 28.7. The patient has a sodium of 139, potassium of 4.1, chloride of 107, bicarb of 22, BUN of 10, creatinine of 1.0, glucose of 80, calcium of 9.0, mag nesium of 2.1, total bili 2.0, AST of 133, ALT of 265, and alkaline phosphatase of 297. Troponin les s than 0.03. Total protein 6.1, albumin 3.5, globulin 2.6, lipase of . UA; 2+ ketones, 1+ bilirubin, otherwise negative. Alcohol less than 10. CT of the abdomen and pelvis, revealed negati ve process on the first. Repeat CT of the abdomen and pelvis on the of 4 reveal cholecystectomy, cli ps present. Questionable distal duct over the head of the pancreas. Dilatation with postsurgical cl ips in place after cholecystectomy. The ultrasound of the abdomen reveals cholecystectomy changes. Biliary tree 9-10 mm in size. MRCP recommended. MRCP revealed multiple stones in the common bile du ct indicative of choledocholithiasis quality. Large stone being 4 mm report. Impression: 1.Choledocholithiasis. Positive MRCP showed multiple stones in the common bile duct, largest being 4 mm with prior cholecystectomy. Cholecystectomy changes performed with over the past week. The pat ient has elevated liver chemistries, jaundice, which has smiled, right upper quadrant midepigastric p ain, nausea, vomiting, but no fevers, chills, or night sweats. 2.Jaundice secondary to biliary obstruction. 3.Left colon . Recommendations: 1.ERCP. 2.IV fluids and IV antibiotics. 3.Continue. The patent pain medicines antiemetics. 4.Monitor labs. JAMES/SEGUNDO Voice ID: [id number] Report ID: [id number]
== END 2018-03-31 13:15 | disposition home or self-care (01) | DRG 446 ==
LOC: ER 07:04 → ERHOLD 10:50 → 2ND 13:59
PROVIDERS: ADMIT Family Medicine; ATTEND Family Medicine
PROC: 0FC98ZZ Extirpation of Matter from Common Bile Duct, Via Natural or Artificial Opening Endoscopic (ICD-10-PCS; 2018-03-30)
PROC: 0F798ZZ Dilation of Common Bile Duct, Via Natural or Artificial Opening Endoscopic (ICD-10-PCS; principal; 2018-03-30 11:00)
DX: K80.50 Calculus of bile duct without cholangitis or cholecystitis without obstruction (principal); K83.8 Other specified diseases of biliary tract; R79.89 Other specified abnormal findings of blood chemistry; E80.6 Other disorders of bilirubin metabolism; Z90.49 Acquired absence of other specified parts of digestive tract
CPT/HCPCS: 36415; 71045; 74177; 74181; 76705; 80048; 80053; 80076; 80320; 81003; 82150; 82550; 82553; 83690; 83735; 83880; 84484; 85025; 85610; 85730; 87040; 93005; 96361; 96374; 99285; C1769; C9113; J0690; J1580; J2250; J3010; J7030; Q9967